=== PATIENT | female | born 1940 | race Caucasian/White ===

== ENCOUNTER → 2016-03-21 | Day surgery (SDC) | payer MEDICARE, OTHER ==
[~2016-03-21] MED LIST: ALPR0.25 PO; BUPIVACAINE HCL PF 0.5% 30 ML VIAL ONE; CHON150C PO; COLA100C3 PO; ESTR1TAB PO; GLUC500T4 PO; HYDR-4107 PO; IRBE150T51 PO; MULTTAB67 PO; NIFE15TA PO; OMEP20TA PO; PROPOFOL 200 MG/20 ML AMP IV ONE; ROSU1TAB4 PO; TRIAMCINOLONE ACETONIDE 40 MG/ML VIAL NB ONE; VITA100018 PO
--- NOTE | 2016-03-21 13:26 | M6 ---
cc: LUZ MARINA SHANKAR M.D. DATE: 03/21/2016 DATE OF : 1940 PROCEDURE Fluoroscopically guided injection bilateral cervical facet joints (bilateral C3-4, C4-5 and C5-6 facet joints). History and physical was completed and signed. Consent was signed. Procedure site was marked. Medications were listed and reconciled. Pain score was recorded. Allergies were noted. Time out was taken. Fluoroscopy time was recorded where applicable. Sedation was administered or directed by Dr. Shankar. The patient was given oxygen. The patient was monitored by a registered nurse. Total procedure time was greater than 15 minutes. IV was started, blood pressure cuff, pulse oximeter and EKG were applied. The patient was placed in the prone position on a Satinder table sedated with small amounts of propofol titrated to effect. Vital signs were monitored and remained stable throughout the procedure the cervical area was prepped with alcohol and 10% Betadine solution and draped with sterile drapes. Fluoroscopy was used to visualize the bilateral cervical facet joints at C3-4, C4-5 and C5-6. Separate sterile 3-1/2-inch 25-gauge spinal needles were advanced to these joints under fluoroscopic guidance. There was negative aspiration for blood or any other type of fluid and at each location the patient was given 1 mL of 0.5% Marcaine which contained 10 mg of Kenalog. Following the procedure the patient was taken to the recovery room with stable vital signs neurologically. W. MD RANDOLPH Thompson/marlene /9:43 AM /1:24 PM
== END | disposition home or self-care (01) ==
LOC: PHSDC 08:19
PROVIDERS: ATTEND Pain Medicine Interventional Pain Medicine
DX: M54.2 Cervicalgia (principal)
CPT/HCPCS: 64490; 64491; 64492; 99152; J3301

== ENCOUNTER → 2016-04-02 | Day surgery (SDC) | payer MEDICARE, OTHER ==
[~2016-04-02] MED LIST changes: -BUPIVACAINE HCL PF 0.5% 30 ML VIAL ONE; +BUPIVACAINE HCL PF 0.75% 30 ML VIAL ONE; +TRIAMCINOLONE ACETONIDE 40 MG/ML VIAL I-ARTICULR ONE; -TRIAMCINOLONE ACETONIDE 40 MG/ML VIAL NB ONE
--- NOTE | 2016-04-08 23:39 | M6 ---
cc: LUZ MARINA SHANKAR M.D. DATE: 04/02/2016 DATE OF : 1940. PROCEDURE: Injection bilateral lumbar facet joints (bilateral L3-4, L4-5 and L5-S1 facet joints). History and physical was completed and signed. Consent was signed. Procedure site was marked. Medications were listed and reconciled. Pain score was recorded. Allergies were noted. Time out was taken. Fluoroscopy time was recorded where applicable. Sedation was administered or directed by Dr. Shankar. The patient was given oxygen. The patient was monitored by a registered nurse. Total procedure time was greater than 15 minutes. PROCEDURE NOTE: IV was started, blood pressure cuff, pulse oximeter and EKG were applied. The patient was placed in the prone position on a Satinder table sedated with small amounts of propofol titrated to effect. Vital signs were monitored and remained stable throughout the procedure. The lumbar area was prepped with alcohol and 10% Betadine solution, draped with sterile drapes. Fluoroscopy was used in a Gideon dog view to clearly visualize the bilateral lumbar facet joints at L3-4, L4-5 and L5-S1. Separate sterile 3-1/2 inch 25-gauge spinal needles were advanced into each joint. There was negative aspiration for blood or any other type of fluid and at each location the patient was given 1 mL of Marcaine 0.75% which contained 10 mg of Kenalog. Following the procedure the patient was taken to the recovery room with stable vital signs neurologically intact. She will be evaluated immediately and with followup to determine if she has a subjective decrease in her usual pain and a corresponding objective increase in her functional capabilities. W. MD RANDOLPH Thompson/PORSCHE /8:32 AM /11:37 PM
== END | disposition home or self-care (01) ==
LOC: PHSDC 06:38
PROVIDERS: ATTEND Pain Medicine Interventional Pain Medicine
DX: M54.5 Low back pain (principal)
CPT/HCPCS: 64493; 64494; 64495; 99152; J3301